=== PATIENT | female | born 1960 | race Caucasian/White ===

== ENCOUNTER → 2016-10-31 | Outpatient (CLI) | payer OTHER ==
[~2016-10-31] MED LIST: ALBINS/ INH; ALBU0.08 INH; ASMIN/30 INH; CHOL100010 PO; OXYC-106 PO; PRED20TA PO; SNG10 PO
--- NOTE | 2016-10-31 15:34 | DIAGNOSTIC IMAGING REPORT ---
RIGHT KNEE 1 OR 2 VIEWS ROUTINE CLINICAL HISTORY: KNEE PAIN Right pain COMPARISON: None. DISCUSSION: Significant degenerative change medial joint compartment. Moderate degenerative changes lateral joint compartment and patellofemoral joint. No acute bony abnormality. Bony mineralization is within normal limits. There is no evidence for soft tissue swelling. IMPRESSION: Considerable degenerative change medial joint compartment with mild degenerative change of all additional joint compartments. No acute bony abnormality. Electronically signed by: Seferino Diaz M.D. 10/31/2016 3:32 PM Dictated Date/Time: 10/31/2016 3:32 PM
--- NOTE | 2016-10-31 15:34 | DIAGNOSTIC IMAGING REPORT ---
CHEST 2 VIEWS ROUTINE CLINICAL HISTORY: ASTHMA EXACERBATION dyspnea COMPARISON STUDY: 06/28/2016 FINDINGS: The bones soft tissues and hemidiaphragms are normal. The cardiomediastinal silhouette is normal. The lungs are clear. The pulmonary vasculature is normal. IMPRESSION: Negative chest. Electronically signed by: Seferino Diaz M.D. 10/31/2016 3:33 PM Dictated Date/Time: 10/31/2016 3:33 PM
== END | disposition home or self-care (01) ==
LOC: C.RAD1850 15:06
PROVIDERS: ATTEND Student in an Organized Health Care Education/Training Program
DX: J45.901 Unspecified asthma with (acute) exacerbation (principal); M25.569 Pain in unspecified knee; M17.11 Unilateral primary osteoarthritis, right knee

== ENCOUNTER 2017-08-20 18:38 | Emergency (ER) | payer OTHER ==
[~2017-08-20] VITALS: Ht 165.1 cm; Wt 72.7 kg
[~2017-08-20 18:38] MED LIST changes: -PRED20TA PO
[2017-08-20 18:47] VITALS: TEMP 36.6; Ht 165.1 cm; Wt 72.7 kg
[2017-08-20] MEDS ORDERED: DiphenhydrAMINE HCL 50 MG/ML VIAL IV STA (19:07)
[2017-08-20] MEDS ORDERED: PROCHLORPERAZINE 5 MG/ML 2 ML VIAL IM STA (19:07)
[2017-08-20] MEDS ORDERED: KETOROLAC TROMETHAMINE 30 MG/ML VIAL IV STA (19:07)
[2017-08-20] MEDS ORDERED: DEXAMETHASONE SOD INJ 4 MG/ML VIAL IV STA (19:07)
[2017-08-20] MEDS ORDERED: ALBINS/ INH (19:14)
[2017-08-20] MEDS ORDERED: SNG10 PO (19:14)
[2017-08-20] MEDS ORDERED: ADVIN50/60 INH (19:14)
[2017-08-20] MEDS ORDERED: CHOL100027 PO (19:15)
[2017-08-20 19:22] VITALS: O2SAT 97
--- NOTE | 2017-08-20 19:25 | EMERGENCY ROOM VISIT NOTE ---
History Report prepared by Elizabeth: Daya Calixto Under the Supervision of: Dr. Raghavendra Lozada M.D. First contact with patient: 18:50 Chief Complaint: HEADACHE Stated Complaint: SEVERE HEADACHE History of Present Illness The patient is a 57 year old white female with a past medical history of Meningitis, Asthma, Hypertension, and Sinusitis who presents to the ED with a cc of a worsening headache beginning 16 hours ago. The patient reports that she was awoken out of her sleep from the headache. The patient states that the pain does not feel like when she had Meningitis. She reports that the pain is worse with lights and sound. The patient reports that she has taken Percocet with a little relief. She notes that she has had headaches in the past. Positive nausea , vomiting, back pain, and some nasal drainage. Negative urinary symptoms, melena, hematochezia, diarrhea, recent falls, and being on blood thinning medications. She notes that she last had antibiotics a few weeks ago. Source of History: patient Onset: 16 hours ago Position: head Timing: worsening Modifying Factors (Worsening): other (lights and sound) Modifying Factors (Relieving): other (Percocet) Associated Symptoms: + nausea, + vomiting, + back pain, No melena, No hematochezia, No diarrhea, No urinary symptoms Note: The patient complains of some nasal drainage. The patient denies any recent falls and being on blood thinners. Review of Systems See HPI for pertinent positives and negatives. A total of ten systems were reviewed and were otherwise negative. Past Medical & Surgical Medical Problems: (1) Asthma (2) Hx: meningitis (3) Hypertension (4) Sinusitis Family History Diabetes mellitus FHx: heart disease Hypertension Social History Smoking Status: Current Some Day Smoker Alcohol Use: occasionally Drug Use: none Marital Status: Housing Status: lives with family Occupation Status: unemployed Current/Historical Medications Scheduled Fluticasone Prop/Salmeterol (Advair Diskus 500/50 60 Dose), 1 PUFF INH BID Montelukast Sod (Montelukast Sodium), 10 MG PO DAILY Oxycodone/Acetaminophen 10MG/325MG (Percocet 10MG/325MG), 1 TAB PO QID Scheduled PRN Albuterol Sulf (Proventil 0.083% 2.5MG/3ML), 2.5 MG INH QID PRN for SOB/Wheezing Allergies Coded Allergies: BEE STING (Verified Allergy, Severe, SHORTNESS OF BREATH, 06/28/16) Penicillins (Verified Allergy, Intermediate, SWELLING, 06/28/16) Acetaminophen (Unverified Allergy, Unknown, unknown, 06/28/16) Doxepin (Unverified Allergy, Unknown, unknown, 06/28/16) Hydrocodone (Unverified Allergy, Unknown, unknown, 06/28/16) Meloxicam (Unverified Allergy, Unknown, unknown, 06/28/16) Morphine (Verified Allergy, Unknown, ???, 06/28/16) Physical Exam Vital Signs Date Time Temp Pulse Resp B/P (MAP) Pulse Ox O2 Delivery O2 Flow Rate FiO2 08/20/17 21:08 78 118/89 94 08/20/17 20:06 80 130/73 96 Room Air 08/20/17 19:27 80 08/20/17 19:22 97 Room Air 08/20/17 18:47 36.6 85 18 157/91 95 Room Air Physical Exam GENERAL: Awake, alert, well-appearing. Tearful and in pain. HENT: Normocephalic, atraumatic. Nose has turbinates look inflamed and boggy. Clear drainage. EYES: Normal conjunctiva. Sclera non-icteric. Photophobia. EMOI. Gross facially intact. NECK: Supple. No nuchal rigidity. FROM. No signs of Meningitis. RESPIRATORY: CTAB, no rhonchi, wheezing, crackles CARDIAC: RRR, no MRG ABDOMEN: Soft, NTND, BS+ MSK: No chest wall TTP, no LE edema NEURO: CN 2-12 intact, 5/5 upper and lower extremity strength, no dysmetria, no drift, good finger to nose, no sensory deficits. SKIN: No rash or jaundice noted. Medical Decision & Procedures ER Provider Diagnostic Interpretation: Radiology results as stated below per my review and radiologist interpretation: HEAD WITHOUT CONTRAST (CT) CT DOSE: 537.48 mGy.cm HISTORY: Mental status change Evaluate for hemorrhage or pathology TECHNIQUE: Multiaxial CT images of the head were performed without the use of intravenous contrast. A dose lowering technique was utilized adhering to the principles of ALARA. Comparison: 04/30/2014 Findings: Stable chronic postoperative change including antral window placement medial aspect maxillary sinuses. Mastoid air cells are clear. The calvarium and skull base are intact. The ventricles and sulci are within normal limits. There is no mass, hematoma, midline shift, or acute infarct. Impression: No acute intracranial abnormality. Chronic and postoperative changes of the maxillary sinuses. The above report was generated using voice recognition software. It may contain grammatical, syntax or spelling errors. Electronically signed by: Seferino Diaz M.D. 08/20/2017 8:05 PM Dictated Date/Time: 08/20/2017 8:03 PM Laboratory Results 08/20/17 19:30 Red Blood Count 3.90, Mean Corpuscular Volume 99.0, Mean Corpuscular Hemoglobin 32.1, Mean Corpuscular Hemoglobin Concent 32.4, Mean Platelet Volume 9.4, Neutrophils (%) (Auto) 61.2, Lymphocytes (%) (Auto) 26.9, Monocytes (%) (Auto) 9.2, Eosinophils (%) (Auto) 2.2, Basophils (%) (Auto) 0.3, Neutrophils # (Auto) 5.54, Lymphocytes # (Auto) 2.44, Monocytes # (Auto) 0.83, Eosinophils # (Auto) 0.20, Basophils # (Auto) 0.03 08/20/17 19:30 Test 08/20/17 19:30 White Blood Count 9.06 K/uL (4.8-10.8) Red Blood Count 3.90 M/uL (4.2-5.4) Hemoglobin 12.5 g/dL (12.0-16.0) Hematocrit 38.6 % (37-47) Mean Corpuscular Volume 99.0 fL (80-100) Mean Corpuscular Hemoglobin 32.1 pg (25-34) Mean Corpuscular Hemoglobin Concent 32.4 g/dl (32-36) Platelet Count 310 K/uL (130-400) Mean Platelet Volume 9.4 fL (7.4-10.4) Neutrophils (%) (Auto) 61.2 % Lymphocytes (%) (Auto) 26.9 % Monocytes (%) (Auto) 9.2 % Eosinophils (%) (Auto) 2.2 % Basophils (%) (Auto) 0.3 % Neutrophils # (Auto) 5.54 K/uL (1.4-6.5) Lymphocytes # (Auto) 2.44 K/uL (1.2-3.4) Monocytes # (Auto) 0.83 K/uL (0.11-0.59) Eosinophils # (Auto) 0.20 K/uL (0-0.5) Basophils # (Auto) 0.03 K/uL (0-0.2) RDW Standard Deviation 48.5 fL (36.4-46.3) RDW Coefficient of Variation 13.6 % (11.5-14.5) Immature Granulocyte % (Auto) 0.2 % Immature Granulocyte # (Auto) 0.02 K/uL (0.00-0.02) Anion Gap 7.0 mmol/L (3-11) Est Creatinine Clear Calc Drug Dose 100.9 ml/min Estimated GFR () 115.6 Estimated GFR (Non- 99.8 BUN/Creatinine Ratio 18.9 (10-20) Calcium Level 8.7 mg/dl (8.5-10.1) Lyme Disease IgG Antibody NEG (NEG) Lyme Disease IgM Antibody NEG (NEG) Laboratory results reviewed by me Medications Administered Medications (Trade) Dose Ordered Sig/Riley Route Start Time Stop Time Status Last Admin Dose Admin Prochlorperazine Edisylate (Compazine Inj) 10 mg NOW STAT IM 08/20/17 19:07 08/20/17 19:09 DC 08/20/17 19:45 10 MG Ketorolac Tromethamine (Toradol Inj) 30 mg NOW STAT IV 08/20/17 19:07 08/20/17 19:09 DC 08/20/17 19:38 30 MG Dexamethasone Sodium Phosphate (Decadron Inj) 10 mg NOW STAT IV 08/20/17 19:07 08/20/17 19:09 DC 08/20/17 19:40 10 MG Diphenhydramine HCl (Benadryl Inj) 50 mg NOW STAT IV 08/20/17 19:07 08/20/17 19:09 DC 08/20/17 19:39 50 MG ECG Indication: vomiting Rate (beats per minute): 72 Rhythm: normal sinus Findings: Q waves (V2), other (Normal intervals, no other STS or TWI changes) ED Course 1855: The patient was evaluated in room A9B. A complete history and physical exam was performed. 2024: I reevaluated the patient and she is doing much better. 2100: I reevaluated the patient. Discussed results and discharge instructions: She verbalized understanding and agreement. The patient is ready for discharge. Medical Decision The patient is a 57 year old white female with a past medical history of Meningitis, Asthma, Hypertension, and Sinusitis who presents to the ED with a cc of a worsening headache beginning 16 hours ago. Etiologies such as migraine headache, meningitis, sinusitis, CO exposure, ICH, SAH, infection, tumor, headache, sinus thrombosis, arterial dissection, as well as others were entertained. Patient was seen and evaluated the bedside. Patient has complained of the history of migraines but this was worse. Patient does describe some sort of history of meningitis but states it is not quite like that. Patient denies any falls fevers or chills. Patient does have a history of chronic sinusitis must metabolic proximally 3 weeks ago. Patient struck taking her Percocets but this has not helped. Exam patient is a normal neurologic exam. Patient does have some photophobia. No signs of meningismus. Patient did have blood work that was completed along with urinalysis and a CT of the brain. Patient was given a headache cocktail. Patient's CT was negative. Patient white blood cell count was within normal limits. Patient kidney function was normal. I reassessed the patient the patient was feeling improved. Patient was able tolerate by mouth. This is less likely infection. I do not believe this is ICH given the negative CT scan. Patient's feeling improved has no neurologic deficits. Patient was given return precautions and was agreeable with the plan of care. Patient was given strict follow-up, discharge, and return precautions. All questions were answered. Patient was deemed suitable for outpatient follow-up at this time. Patient agreed with the plan of care and was safely discharged home. Medication Reconcilliation Current Medication List: was personally reviewed by me Blood Pressure Screening Patient's blood pressure: Elevated blood pressure Blood pressure disposition: Elevated BP felt to be situational Impression Primary Impression: Migraine Scribe Attestation The scribe's documentation has been prepared under my direction and personally reviewed by me in its entirety. I confirm that the note above accurately reflects all work, treatment, procedures, and medical decision making performed by me. Departure Information Dispostion Home / Self-Care Referrals Vianca Andrade M.D. (PCP) Forms HOME CARE DOCUMENTATION FORM, IMPORTANT VISIT INFORMATION Patient Instructions ED Headache Migraine, My [facility] Additional Instructions Please return to the emergency department if you have worsening or recurrent symptoms not amenable to at-home treatment. Please call for a follow-up appointment with her primary care physician. Please take your medications as prescribed. If you have other concerns and/or complaints please feel free to also call your primary care physician's office or return the ED for further evaluation, management, and treatment. Consider discussing headache relief with your primary care physician. If this becomes a more chronic issue he may need to be seen by either a painter and/or a neurologist. You may take 600 mg Ibuprofen every 6 hours as needed for pain with food for no more than 2 consecutive days. You may take tylenol 1000 mg every 6 hours as needed for pain. You may take motrin and tylenol separately or at the same time. Take your medications as prescribed. You have been examined and treated today on an emergency basis only. This is not a substitute for, or an effort to provide, complete comprehensive medical care. It is impossible to recognize and treat all injuries or illnesses in a single emergency department visit. It is therefore important that you follow up closely with [facility], your PCP, and/or your specialist(s). Call as soon as possible for an appointment. Thank you for your time and consideration. I look forward to speaking with you again soon. Please don't hesitate to call us if you have any questions. Problem Qualifiers Primary Impression: Migraine Migraine type: unspecified Status migrainosus presence: without status migrainosus Intractability: not intractable Qualified Codes: G43.909 - Migraine, unspecified, not intractable, without status migrainosus
[2017-08-20 19:49] LABS: BASO % 0.3 %; BASO ABS # 0.03 K/uL (0-0.2); COMPLETE YES; EOS % 2.2 %; HEMATOCRIT 38.6 % (37-47); IG% 0.2 %; LYMPH % 26.9 %; LYMPH ABS # 2.44 K/uL (1.2-3.4); MEAN CORPUSCULAR HEMOGLOBIN 32.1 pg (25-34); MEAN CORPUSCULAR HGB CONC 32.4 g/dl (32-36); MEAN PLATELET VOLUME 9.4 fL (7.4-10.4); MONO % 9.2 %; NEUT % 61.2 %; PLATELET COUNT 310 K/uL (130-400); WHITE BLOOD COUNT 9.06 K/uL (4.8-10.8)
--- NOTE | 2017-08-20 20:06 | DIAGNOSTIC IMAGING REPORT ---
HEAD WITHOUT CONTRAST (CT) CT DOSE: 537.48 mGy.cm HISTORY: Mental status change Evaluate for hemorrhage or pathology TECHNIQUE: Multiaxial CT images of the head were performed without the use of intravenous contrast. A dose lowering technique was utilized adhering to the principles of ALARA. Comparison: 04/30/2014 Findings: Stable chronic postoperative change including antral window placement medial aspect maxillary sinuses. Mastoid air cells are clear. The calvarium and skull base are intact. The ventricles and sulci are within normal limits. There is no mass, hematoma, midline shift, or acute infarct. Impression: No acute intracranial abnormality. Chronic and postoperative changes of the maxillary sinuses. The above report was generated using voice recognition software. It may contain grammatical, syntax or spelling errors. Electronically signed by: Seferino Diaz M.D. 08/20/2017 8:05 PM Dictated Date/Time: 08/20/2017 8:03 PM
[2017-08-20 20:07] LABS: BUN/CREATININE RATIO 18.9 (10-20); CALCIUM 8.7 mg/dl (8.5-10.1); CREATININE 0.6 mg/dl (0.60-1.20); POTASSIUM 3.8 mmol/L (3.5-5.1)
[2017-08-20 20:46] LABS: LYME DISEASE AB IGG NEG (NEG); LYME DISEASE AB IGM NEG (NEG)
[2017-08-20 21:08] VITALS: BP 118/89; PULSE 78; O2SAT 94
== END 2017-08-20 21:10 | disposition home or self-care (01) ==
LOC: C.EDB 18:40 → C.EDA 21:10
DX: G43.909 Migraine, unspecified, not intractable, without status migrainosus (principal); J45.909 Unspecified asthma, uncomplicated; I10 Essential (primary) hypertension; Z72.0 Tobacco use; Z79.51 Long term (current) use of inhaled steroids; Z86.61 Personal history of infections of the central nervous system; Z83.3 Family history of diabetes mellitus; Z82.49 Family history of ischemic heart disease and other diseases of the circulatory system

== ENCOUNTER 2017-11-03 14:06 | Inpatient (IN) | payer OTHER ==
[~2017-11-03] VITALS: Ht 172.7 cm; Wt 61.6 kg
[~2017-11-03 14:06] MED LIST changes: +ADVIN50/60 INH; -ALBU0.08 INH; -ASMIN/30 INH; -CHOL100010 PO
[2017-11-03] MEDS ORDERED: SODIUM CHLORIDE 0.9% 1000ML 1,000 ML IV STA (15:27)
[2017-11-03] MEDS ORDERED: ALBUTEROL 0.083% NEBU SOLN 3 ML VIAL INH STA ×2 (15:27→18:02)
[2017-11-03] MEDS ORDERED: ASPIRIN 81 MG CHEW PO STA (15:27)
[2017-11-03 15:51] LABS: BASO % 0.1 %; BASO ABS # 0.01 K/uL (0-0.2); EOS % 0.2 %; EOS ABS # 0.03 K/uL (0-0.5); HEMATOCRIT 42.4 % (37-47); HEMOGLOBIN 14.1 g/dL (12.0-16.0); IG# 0.14 K/uL (0.00-0.02); LYMPH % 29.3 %; LYMPH ABS # 3.74 K/uL (1.2-3.4); MEAN CORPUSCULAR HEMOGLOBIN 33.6 pg (25-34); MEAN CORPUSCULAR HGB CONC 33.3 g/dl (32-36); MEAN PLATELET VOLUME 9.2 fL (7.4-10.4); MONO ABS # 1.15 K/uL (0.11-0.59); NEUT % 60.3 %; PLATELET COUNT 324 K/uL (130-400); RED CELL DISTRIBUTION WIDTH CV 14.8 % (11.5-14.5); RED CELL DISTRIBUTION WIDTH SD 54.9 fL (36.4-46.3); WHITE BLOOD COUNT 12.77 K/uL (4.8-10.8)
--- NOTE | 2017-11-03 15:53 | DIAGNOSTIC IMAGING REPORT ---
CHEST ONE VIEW PORTABLE CLINICAL HISTORY: Chest Pain dyspnea COMPARISON STUDY: 10/31/2016 FINDINGS: The bones soft tissues and hemidiaphragms are normal. The cardiomediastinal silhouette is normal. The lungs are clear. The pulmonary vasculature is normal. IMPRESSION: Negative chest. The above report was generated using voice recognition software. It may contain grammatical, syntax or spelling errors. Electronically signed by: Seferino Diaz M.D. 11/03/2017 3:52 PM Dictated Date/Time: 11/03/2017 3:51 PM
[2017-11-03 16:21] LABS: BLOOD UREA NITROGEN 21 mg/dl (7-18); CALCIUM 8.1 mg/dl (8.5-10.1); CARBON DIOXIDE 29 mmol/L (21-32); CKMB 2.8 ng/ml (0.5-3.6); CREATININE 0.77 mg/dl (0.60-1.20); GLUCOSE 135 mg/dl (70-99); POTASSIUM 4.2 mmol/L (3.5-5.1); SODIUM 135 mmol/L (136-145)
[2017-11-03 17:08] LABS: INFLUENZA B ANTIGEN Neg for Influ B (NEG)
[2017-11-03] MEDS ORDERED: HYDROmorphone INJ 0.5 MG/0.5 ML SYR IV STA (17:25)
[2017-11-03] MEDS ORDERED: NITROGLYCERIN 0.4 MG SL PER TAB CHARGE SL PRN (17:30)
[2017-11-03] MEDS ORDERED: ACETAMINOPHEN 500 MG TAB PO STA (18:02)
[2017-11-03] MEDS ORDERED: GI COCKTAIL PO STA (18:15)
[2017-11-03] MEDS ORDERED: LIDOCAINE HCL 2% VISC SOLN 20 ML UDC ONE (18:20)
[2017-11-03] MEDS ORDERED: ALUMINUM/MAGNESIUM SUSP 30 ML UDC ONE (18:20)
[2017-11-03] MEDS ORDERED: METHYLPREDNISOLONE 125 MG VIAL IV STA (19:13)
--- NOTE | 2017-11-03 19:24 | EMERGENCY ROOM VISIT NOTE ---
History Report prepared by Elizabeth: Vivek Buckley Under the Supervision of: Dr. Loi Martinez D.O. First contact with patient: 15:18 Chief Complaint: ILLNESS Stated Complaint: NOT FEELING WELL (SICK) History of Present Illness The patient is a 57 year old female who presents to the Emergency Room with complaints of generalized weakness that began four days ago. She has a past medical history of hypertension, asthma, and a previous ID. The patient states that she began to feel ill about 2 weeks ago, but ended up improving. However, four days ago the patient suddenly began to feel generally weak. She also began to have a worsened nonproductive cough, body aches, shortness of breath that is worse with exertion, and left sided chest pain when she lies down. Pt denies headache, change in vision, rhinorrhea, sore throat, fevers, nausea, vomiting, abdominal pain, diarrhea, pain with urination, melena, and leg swelling. Source of History: patient Onset: four days ago Position: other (Global) Symptom Intensity: moderate Quality: other (Generalized weakness) Timing: constant Associated Symptoms: + chest pain (left sided with lying down), + SOB (with exertion), No fevers, No headache, No sorethroat, No nausea, No vomiting, No abdominal pain, No melena, No diarrhea, No urinary symptoms Review of Systems See HPI for pertinent positives & negatives. A total of 10 systems reviewed and were otherwise negative. Past Medical & Surgical Medical Problems: (1) Acute sinusitis (2) Asthma (3) COPD exacerbation (4) Hx: meningitis (5) Hypertension (6) Sinusitis Family History Diabetes mellitus FHx: heart disease Hypertension Social History Smoking Status: Current Every Day Smoker Alcohol Use: occasionally Drug Use: none Marital Status: Housing Status: lives with family Occupation Status: unemployed Current/Historical Medications Scheduled Fluticasone Prop/Salmeterol (Advair Diskus 500/50 60 Dose), 1 PUFF INH BID Montelukast Sod (Montelukast Sodium), 10 MG PO DAILY Oxycodone/Acetaminophen 10MG/325MG (Percocet 10MG/325MG), 1 TAB PO QID Scheduled PRN Albuterol Sulf (Proventil 0.083% 2.5MG/3ML), 2.5 MG INH QID PRN for SOB/Wheezing Allergies Coded Allergies: BEE STING (Verified Allergy, Severe, SHORTNESS OF BREATH, 06/28/16) Penicillins (Verified Allergy, Intermediate, SWELLING, 06/28/16) Acetaminophen (Unverified Allergy, Unknown, unknown, 06/28/16) Doxepin (Unverified Allergy, Unknown, unknown, 06/28/16) Hydrocodone (Unverified Allergy, Unknown, unknown, 06/28/16) Meloxicam (Unverified Allergy, Unknown, unknown, 06/28/16) Morphine (Verified Allergy, Unknown, ???, 06/28/16) Physical Exam Vital Signs Date Time Temp Pulse Resp B/P (MAP) Pulse Ox O2 Delivery O2 Flow Rate FiO2 11/03/17 19:13 80 20 127/78 98 Room Air 11/03/17 18:04 95 20 99/66 97 Room Air 11/03/17 17:00 87 20 128/88 97 Room Air 11/03/17 16:31 88 20 109/66 100 Nebulizer 5.0 11/03/17 14:34 36.8 93 16 115/64 96 Room Air Physical Exam GENERAL: Sitting up in bed, disheveled, alert, chronically ill appearing, well nourished, no distress, non-toxic EYE EXAM: normal conjunctiva. OROPHARYNX: no exudate, no erythema, lips, buccal mucosa, and tongue normal and mucous membranes are moist NECK: supple, no nuchal rigidity, no adenopathy, non-tender CHEST: No reproducible chest pain LUNGS: Clear to auscultation. Normal chest wall mechanics HEART: no murmurs, S1 normal and S2 normal ABDOMEN: abdomen soft, non-tender, normo-active bowel sounds, no masses, no rebound or guarding. BACK: Back is symmetrical on inspection and there is no deformity, no midline tenderness, no CVA tenderness. SKIN: no rashes and no bruising UPPER EXTREMITIES: upper extremities are grossly normal. Radial pulses equal bilaterally. LOWER EXTREMITIES: No pitting edema. DP's are 2/4 bilaterally. Calves equal bilaterally. NEURO EXAM: Normal sensorium, cranial nerves II-XII grossly intact, normal speech, no gross weakness of arms, no gross weakness of legs. Medical Decision & Procedures ER Provider Diagnostic Interpretation: Radiology results as stated below per my review and the radiologist's interpretation: CHEST ONE VIEW PORTABLE CLINICAL HISTORY: Chest Pain dyspnea COMPARISON STUDY: 10/31/2016 FINDINGS: The bones soft tissues and hemidiaphragms are normal. The cardiomediastinal silhouette is normal. The lungs are clear. The pulmonary vasculature is normal. IMPRESSION: Negative chest. The above report was generated using voice recognition software. It may contain grammatical, syntax or spelling errors. Electronically signed by: Seferino Diaz M.D. 11/03/2017 3:52 PM Dictated Date/Time: 11/03/2017 3:51 PM Laboratory Results 11/03/17 15:35 Red Blood Count 4.20, Mean Corpuscular Volume 101.0, Mean Corpuscular Hemoglobin 33.6, Mean Corpuscular Hemoglobin Concent 33.3, Mean Platelet Volume 9.2, Neutrophils (%) (Auto) 60.3, Lymphocytes (%) (Auto) 29.3, Monocytes (%) ( Auto) 9.0, Eosinophils (%) (Auto) 0.2, Basophils (%) (Auto) 0.1, Neutrophils # ( Auto) 7.70, Lymphocytes # (Auto) 3.74, Monocytes # (Auto) 1.15, Eosinophils # ( Auto) 0.03, Basophils # (Auto) 0.01 11/03/17 15:35 Test 11/03/17 15:35 11/03/17 16:37 White Blood Count 12.77 K/uL (4.8-10.8) Red Blood Count 4.20 M/uL (4.2-5.4) Hemoglobin 14.1 g/dL (12.0-16.0) Hematocrit 42.4 % (37-47) Mean Corpuscular Volume 101.0 fL (80-100) Mean Corpuscular Hemoglobin 33.6 pg (25-34) Mean Corpuscular Hemoglobin Concent 33.3 g/dl (32-36) Platelet Count 324 K/uL (130-400) Mean Platelet Volume 9.2 fL (7.4-10.4) Neutrophils (%) (Auto) 60.3 % Lymphocytes (%) (Auto) 29.3 % Monocytes (%) (Auto) 9.0 % Eosinophils (%) (Auto) 0.2 % Basophils (%) (Auto) 0.1 % Neutrophils # (Auto) 7.70 K/uL (1.4-6.5) Lymphocytes # (Auto) 3.74 K/uL (1.2-3.4) Monocytes # (Auto) 1.15 K/uL (0.11-0.59) Eosinophils # (Auto) 0.03 K/uL (0-0.5) Basophils # (Auto) 0.01 K/uL (0-0.2) RDW Standard Deviation 54.9 fL (36.4-46.3) RDW Coefficient of Variation 14.8 % (11.5-14.5) Immature Granulocyte % (Auto) 1.1 % Immature Granulocyte # (Auto) 0.14 K/uL (0.00-0.02) Anion Gap 6.0 mmol/L (3-11) Est Creatinine Clear Calc Drug Dose 76.5 ml/min Estimated GFR () 98.0 Estimated GFR (Non- 84.5 BUN/Creatinine Ratio 27.8 (10-20) Calcium Level 8.1 mg/dl (8.5-10.1) Total Creatine Kinase 96 U/L (26-192) Creatine Kinase MB 2.8 ng/ml (0.5-3.6) Creatine Kinase MB Ratio 2.9 (0-3.0) Troponin I < 0.015 ng/ml (0-0.045) Chemistry Specimen Hemolysis Influenza Type A Antigen Neg for Influ A (NEG) Influenza Type B Antigen Neg for Influ B (NEG) Laboratory results per my review. Medications Administered Medications (Trade) Dose Ordered Sig/Riley Route Start Time Stop Time Status Last Admin Dose Admin Sodium Chloride 1,000 ml @ 999 mls/hr Q1H1M STAT IV 11/03/17 15:27 11/03/17 16:27 DC 11/03/17 16:28 999 MLS/HR Aspirin (Aspirin Chew) 324 mg NOW STAT PO 11/03/17 15:27 11/03/17 15:28 DC 11/03/17 16:25 324 MG Albuterol Sulfate (Ventolin 0.083% 2.5MG/3ML Neb) 2.5 mg NOW STAT INH 11/03/17 15:27 11/03/17 15:28 DC 11/03/17 16:26 2.5 MG Nitroglycerin (Nitrostat Tab) 0.4 mg Q5M PRN SL 11/03/17 17:30 12/03/17 17:29 11/03/17 17:42 0.4 MG Hydromorphone HCl (Dilaudid Inj) 0.5 mg NOW STAT IV 11/03/17 17:25 11/03/17 17:27 DC 11/03/17 19:15 0.5 MG Albuterol Sulfate (Ventolin 0.083% 2.5MG/3ML Neb) 2.5 mg NOW STAT INH 11/03/17 18:02 11/03/17 18:03 DC 11/03/17 18:23 2.5 MG Acetaminophen (Tylenol Tab) 500 mg NOW STAT PO 11/03/17 18:02 11/03/17 18:03 DC 11/03/17 18:22 500 MG Miscellaneous Medication (Gi Cocktail) 24 ml NOW STAT PO 11/03/17 18:15 11/03/17 18:16 DC 11/03/17 18:15 24 ML Al Hydroxide/Mg Hydroxide (Maalox Susp) 30 ml STK-MED ONCE .ROUTE 11/03/17 18:20 11/03/17 18:21 DC 11/03/17 18:23 30 ML ECG Indication: chest pain, SOB/dyspnea Rate (beats per minute): 82 Rhythm: sinus rhythm Findings: PAC, Q waves (septal), other (Normal axis) Comparison ECG Date: 19 Aug 2017 Change: no significant change Change: Patient's electrocardiogram interpreted by me. ED Course ED COURSE: Vital signs were reviewed and showed normal vitals. The patients medical record was reviewed The above diagnostic studies were performed and reviewed. ED treatments and interventions as stated above. 1518: The patient was evaluated in room B6. A complete history and physical examination was performed. 1527: Ordered Albuterol Sulfate 2.5 mg INH, Aspirin 324 mg PO, Sodium Chloride 1000 ml @ 999 mls/hr IV 1725: Ordered Dilaudid Inj 0.5 mg IV 1730: Ordered Nitroglycerin 0.4 mg SL 1740: Upon reevaluation, the patient is resting.I discussed my findings with the patient and she understands and agrees with the treatment plan. Based on the patients age, coexisting illnesses, exam and lab findings the decision to treat as an inpatient was made. The patient remained stable while under my care. The patient will be evaluated by Dr. Alvarenga - [facility] [place], for further management. 1802: Upon reevaluation, the patient's chest pain has gone away. Ordered Albuterol Sulfate 2.5 mg INH Medical Decision Differential diagnoses includes but is not limited to acute coronary syndrome, myocardial infarction, pericarditis, pulmonary embolus, aortic dissection, pneumonia, pneumothorax, musculoskeletal, shingles, esophageal. Patient is a 57-year-old female who presents to ER for 4 days worth of feeling weak associated with a cough which is worse. Just complains of chest pain, left arm pain and shortness of breath. Does have a previous ID back in 1998. She is also a smoker. CBC shows a mild leukocytosis. BMP along with troponin was negative. Influenza was negative. Chest x-ray unremarkable. She was given neb treatments, and her chest pain resolved with nitroglycerin. Following that she did get a worsening of her headache. She was given Tylenol and Dilaudid. She was given fluids. Do favor she likely has a viral URI but with her history is concerned as she had chest pain associated with left arm pain, shortness of breath and a previous ID. Discussed case with internal medicine for further workup. Medication Reconcilliation Current Medication List: was personally reviewed by me Blood Pressure Screening Patient's blood pressure: Normal blood pressure Blood pressure disposition: Did not require urgent referral Consults Time Called: 1735 Consulting Physician: Dr. Lyle MURPHY Returned Call: 1740 I reviewed the patient's case with her. She will evaluate the patient for further management. Impression Primary Impression: Precordial chest pain Scribe Attestation The scribe's documentation has been prepared under my direction and personally reviewed by me in its entirety. I confirm that the note above accurately reflects all work, treatment, procedures, and medical decision making performed by me. Departure Information Dispostion Being Evaluated By Hospitalist Referrals Vianca Andrade M.D. (PCP) Patient Instructions My [facility]
[2017-11-03] MEDS ORDERED: ALBUT/IPRATROP 3MG/0.5MG NEB 3 ML VIAL INH SCH (20:00)
--- NOTE | 2017-11-03 20:02 | DIAGNOSTIC IMAGING REPORT ---
SINUSES-MAXILLOFACIAL W/O CT DOSE: 492.07 mGy.cm HISTORY: Pain. Sinusitis. h/o multiple sinus surgeries/meningitis, suspect acute sinusitis TECHNIQUE: Multiaxial CT images of the paranasal sinuses were performed and reformatted in the coronal plane without the use of contrast. A dose lowering technique was utilized adhering to the principles of ALARA. COMPARISON: 10/04/2013 FINDINGS: Findings of considerable nasal operative change. Bilateral maxillary antral windows have been placed. These are patent. There are findings of near complete ethmoidectomies. There is partial nasal turbinate resection primarily of the mid and upper nasal turbinates. Moderate mucosal thickening of the sphenoid sinuses. Mild mucosal thickening of the residual ethmoids. No bony destructive process. The mastoid air cells are clear. The orbits are unremarkable. IMPRESSION: 1. Mild/moderate generalized mucosal thickening of all major residual sinuses. 2. Bilateral antral windows have been placed which are patent. 3. Near complete ethmoidectomies with mild mucosal thickening of the residual ethmoids anteriorly. 4. Operative changes consistent with resection of the bulk of the nasal turbinates. 5. The current study is remarkable for improved mucosal thickening compared to the prior exam The above report was generated using voice recognition software. It may contain grammatical, syntax or spelling errors. Electronically signed by: Seferino Diaz M.D. 11/03/2017 8:00 PM Dictated Date/Time: 11/03/2017 7:56 PM
[2017-11-03 20:51] VITALS: BP 145/77; PULSE 74; TEMP 36.7; Ht 172.7 cm; Wt 61.6 kg
[2017-11-03] MEDS ORDERED: NYSTATIN SUSP 500,000 U/5 ML UDC PO SCH (21:00)
[2017-11-03] MEDS ORDERED: OXYCODONE/ACETAMINOPHEN 10/325MG TAB PO SCH (21:00)
[2017-11-03] MEDS ORDERED: FLUTICASONE/SALMETEROL (ADVAIR) 500/50 INH 14 PUFF INH SCH (21:00)
[2017-11-03] MEDS ORDERED: PANTOprazole SOD 40 MG TAB PO ONE (21:15)
[2017-11-03] MEDS ORDERED: METHYLPREDNISOLONE 125 MG in SYRINGE 0 ML IV ONE (21:15)
[2017-11-03] MEDS ORDERED: FLUCONAZOLE 100 MG TAB PO ONE (21:15)
[2017-11-03] MEDS ORDERED: LEVOFLOXACIN / D5W 500 MG in PREMIXED IN D5W 100 ML IV SCH (21:30)
[2017-11-03 21:32] LABS: INR 0.9 (0.9-1.1); PTT PATIENT 23.4 SECONDS (21.0-31.0)
[2017-11-03] MEDS ORDERED: ENOXAPARIN 40 MG/0.4 ML SYR SC SCH (22:00)
[2017-11-03 23:14] VITALS: BP 121/67; PULSE 95; TEMP 36.7; O2SAT 97
[2017-11-03 23:30] VITALS: O2SAT 97
--- NOTE | 2017-11-03 23:38 | History and Physical ---
History & Physical Date & Time of Service: Nov 03, 2017 at 23:38 Chief Complaint: Acute Sinusitis; Copd Exacerbation Primary Care Physician: Vianca Andrade M.D. History of Present Illness Source: patient, hospital records This patient is a 57-year-old female with a history of chronic sinusitis and multiple sinus surgeries, osteoarthritis, asthma/COPD, current smoker, PUD, and what sounds like some demand ischemia in the perioperative period in 1998, who presents to the ER with progressively worsening shortness of breath and cough. She also complains of severe facial pain with frontal headache and swollen eyes. She denies fevers/sweats/chills. She also complains of burning chest pain that sometimes radiates down the left arm. We were consulted to rule her out for acute coronary syndrome, but this clinically seems unlikely. Her ECG did not show any acute ischemic changes, her troponin was negative, and her chest x-ray was negative. Flu swab was negative. Nitroglycerin did not help her chest pain, however a GI cocktail did significantly improve it. She does have significant signs and symptoms of acute sinusitis. She has a lot of postnasal drainage and when she coughs this up, it is thick and green. She reports she took 2 prednisone pills when this first started 4 days ago, and this made all of her symptoms much better for about 2 days. She then worsened again 2 days ago. She is not hypoxic, but is wheezing significantly and in mild respiratory distress on exam. She had a leukocytosis and tachycardia. She will be admitted with sepsis with acute sinusitis and to rule out for ACS. Past Medical/Surgical History PMH: Asthma/COPD Current smoker Extensive history of sinusitis with multiple sinus surgeries Osteoarthritis Opioid dependence Demand ischemia in the setting of the perioperative period in 1998-cardiac cath was normal at that time as per patient PUD PSH: 4 nasal and sinus surgeries with turbinate reductions Bilateral carpal tunnel release Ovarian cyst removal Family History Diabetes mellitus FHx: heart disease Hypertension Father-unknown Mother- of lymphoma Brother-with osteoarthritis Much of family history is largely unknown Social History Smoking Status: Current Every Day Smoker (Has smoked for most of her life and is trying to cut back) Alcohol Use: none Drug Use: none Marital Status: Housing status: lives with family Occupational Status: unemployed (Previously was a regional dedicated truck driver, 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) Immunizations History of Influenza Vaccine: N/A History of Tetanus Vaccine?: Yes History of Pneumococcal: Yes History of Hepatitis B Vaccine: No Allergies Coded Allergies: BEE STING (Verified Allergy, Severe, SHORTNESS OF BREATH, 06/28/16) Penicillins (Verified Allergy, Intermediate, SWELLING, 06/28/16) Acetaminophen (Unverified Allergy, Unknown, unknown, 06/28/16) Doxepin (Unverified Allergy, Unknown, unknown, 06/28/16) Hydrocodone (Unverified Allergy, Unknown, unknown, 06/28/16) Meloxicam (Unverified Allergy, Unknown, unknown, 06/28/16) Morphine (Verified Allergy, Unknown, ???, 06/28/16) Home Medications Scheduled Fluticasone Prop/Salmeterol (Advair Diskus 500/50 60 Dose), 1 PUFF INH BID Montelukast Sod (Montelukast Sodium), 10 MG PO DAILY Oxycodone/Acetaminophen 10MG/325MG (Percocet 10MG/325MG), 1 TAB PO QID Scheduled PRN Albuterol Sulf (Proventil 0.083% 2.5MG/3ML), 2.5 MG INH QID PRN for SOB/Wheezing Review of Systems Constitutional: No fever, No chills, No sweats Eyes: + problem reported (Notes periorbital edema new in the last few days) ENT: + problem reported (Severe frontal headache) Respiratory: + cough, + sputum (Is coughing up thick green mucus that is draining from her nose), + wheezing Cardiovascular: + chest pain Abdomen: No pain, No nausea, No vomiting, No diarrhea, No constipation Musculoskeletal: + joint pain (Chronic in her bilateral knees and right elbow with swelling) Genitourinary - Female: No problem reported Neurologic: No problem reported Psychiatric: + anxiety (Recently lost a close friend and she found her at home) Endocrine: No problem reported Hematologic / Lymphatic: No problem reported Integumentary: No problem reported Allergic / Immunologic: + problem reported (Has multiple sensitivities to medications especially antibiotics with a lot of GI upset) Physical Exam Vital Signs Date Time Temp Pulse Resp B/P (MAP) Pulse Ox O2 Delivery O2 Flow Rate FiO2 11/03/17 20:51 36.7 74 20 145/77 Room Air 11/03/17 20:17 67 16 122/78 98 11/03/17 19:13 80 20 127/78 98 Room Air 11/03/17 18:04 95 20 99/66 97 Room Air 11/03/17 17:00 87 20 128/88 97 Room Air 11/03/17 16:31 88 20 109/66 100 Nebulizer 5.0 11/03/17 14:34 36.8 93 16 115/64 96 Room Air General Appearance: + mild distress (Working to breathe at times, tachypneic with fluid sentences, appears disheveled and anxious) Head: normocephalic, atraumatic Eyes: PERRL, EOMI, + pertinent finding (Bilateral periorbital edema with mild erythema over the maxillary regions bilaterally) ENT: hearing grossly normal, TMs normal, + pharyngeal erythema (With large white plaques all over buccal mucosa and the posterior oropharynx) Neck: supple, no adenopathy, thyroid normal, trachea midline Respiratory/Chest: + respiratory distress (Mild with tachypnea), + rhonchi ( Diffusely), + wheezing (Diffusely inspiratory and expiratory) Cardiovascular: regular rate, rhythm, no edema, no gallop, no murmur, normal peripheral pulses Abdomen/GI: normal bowel sounds, non tender, soft, no organomegaly Back: normal inspection Extremities/Musculoskelatal: normal inspection, no calf tenderness, normal capillary refill, no pedal edema, + swelling (Bilateral knee effusions, right elbow effusion) Neurologic/Psych: alert, oriented x 3, + pertinent finding (Anxious) Skin: warm/dry, no rash Lymphatic: no adenopathy Diagnostics Laboratory Results Results Past 24 Hours Test 11/03/17 15:35 11/03/17 16:37 Range/Units White Blood Count 12.77 4.8-10.8 K/uL Red Blood Count 4.20 4.2-5.4 M/uL Hemoglobin 14.1 12.0-16.0 g/dL Hematocrit 42.4 37-47 % Mean Corpuscular Volume 101.0 80-100 fL Mean Corpuscular Hemoglobin 33.6 25-34 pg Mean Corpuscular Hemoglobin Concent 33.3 32-36 g/dl Platelet Count 324 130-400 K/uL Mean Platelet Volume 9.2 7.4-10.4 fL Neutrophils (%) (Auto) 60.3 % Lymphocytes (%) (Auto) 29.3 % Monocytes (%) (Auto) 9.0 % Eosinophils (%) (Auto) 0.2 % Basophils (%) (Auto) 0.1 % Neutrophils # (Auto) 7.70 1.4-6.5 K/uL Lymphocytes # (Auto) 3.74 1.2-3.4 K/uL Monocytes # (Auto) 1.15 0.11-0.59 K/uL Eosinophils # (Auto) 0.03 0-0.5 K/uL Basophils # (Auto) 0.01 0-0.2 K/uL RDW Standard Deviation 54.9 36.4-46.3 fL RDW Coefficient of Variation 14.8 11.5-14.5 % Immature Granulocyte % (Auto) 1.1 % Immature Granulocyte # (Auto) 0.14 0.00-0.02 K/uL Prothrombin Time 9.0 9.0-12.0 SECONDS Prothromb Time International Ratio 0.9 0.9-1.1 Activated Partial Thromboplast Time 23.4 21.0-31.0 SECONDS Partial Thromboplastin Ratio 0.9 Sodium Level 135 136-145 mmol/L Potassium Level 4.2 3.5-5.1 mmol/L Chloride Level 100 98-107 mmol/L Carbon Dioxide Level 29 21-32 mmol/L Anion Gap 6.0 3-11 mmol/L Blood Urea Nitrogen 21 7-18 mg/dl Creatinine 0.77 0.60-1.20 mg/dl Est Creatinine Clear Calc Drug Dose 76.5 ml/min Estimated GFR () 98.0 Estimated GFR (Non- 84.5 BUN/Creatinine Ratio 27.8 10-20 Random Glucose 135 70-99 mg/dl Calcium Level 8.1 8.5-10.1 mg/dl Total Creatine Kinase 96 26-192 U/L Creatine Kinase MB 2.8 0.5-3.6 ng/ml Creatine Kinase MB Ratio 2.9 0-3.0 Troponin I < 0.015 0-0.045 ng/ml Chemistry Specimen Hemolysis Influenza Type A Antigen Neg for Influ A NEG Influenza Type B Antigen Neg for Influ B NEG CXR normal EKG Normal sinus rhythm, no ischemic changes Impression Assessment and Plan This patient is a 57-year-old female with a history of chronic sinusitis and multiple sinus surgeries, osteoarthritis, asthma/COPD, current smoker, PUD, and what sounds like some demand ischemia in the perioperative period in 1998, who presents to the ER with progressively worsening shortness of breath and cough. She also complains of severe facial pain with frontal headache and swollen eyes. She denies fevers/sweats/chills. She also complains of burning chest pain that sometimes radiates down the left arm. We were consulted to rule her out for acute coronary syndrome, but this clinically seems unlikely. Her ECG did not show any acute ischemic changes, her troponin was negative, and her chest x-ray was negative. Flu swab was negative. Nitroglycerin did not help her chest pain, however a GI cocktail did significantly improve it. She does have significant signs and symptoms of acute sinusitis. She has a lot of postnasal drainage and when she coughs this up, it is thick and green. She reports she took 2 prednisone pills when this first started 4 days ago, and this made all of her symptoms much better for about 2 days. She then worsened again 2 days ago. She is not hypoxic, but is wheezing significantly and in mild respiratory distress on exam. She had a leukocytosis and tachycardia. She will be admitted with sepsis with acute sinusitis and acute exacerbation of COPD, as well as to rule out for ACS. Sepsis/acute sinusitis/headache-has significant history of surgery on the sinuses and turbinates, presenting with signs and symptoms of acute sinusitis. Flu swab negative -Check CT of the sinuses -Start IV Levaquin and monitor for side effects as she often has adverse side effects with antibiotics -Start probiotic -Percocet as needed for pain -Received 1 L bolus in the ER, is tolerating p.o. -Follow CBC Atypical chest pain with radiation to the left upper extremity/oral candidiasis- seems to be GI related. She does have fairly severe oral candidiasis. It is possible that she has esophageal candidiasis as well causing her pain. This could be from not rinsing after using Advair. It was relieved with a GI cocktail and not with nitroglycerin. She does have significant risk factors for CAD such as smoking, previous history of demand ischemia. -Start nystatin swish and swallow 2 week course -Begin Diflucan 100 mg p.o. daily and complete a two-week course empirically -Trend troponin and ECGs, monitor on telemetry -Check echo -Check lipid panel in the morning -Aspirin 81 mg daily, however should stop if rules out for ACS given history of PUD -Start Protonix 40 mg once daily Acute exacerbation of COPD/acute respiratory failure/current smoker-chest x-ray without evidence of pneumonia or CHF -Start IV Solu-Medrol and taper down -We will give duo nebs scheduled every 4 hours -Continue Advair and needs counseling on rinsing of mouth afterwards -Receiving Levaquin as above for sinusitis as well as for acute bronchitis -Counseled on importance of smoking cessation Osteoarthritis/opioid dependence-stable -Continue Percocet scheduled from home Macrocytosis without anemia-denies alcohol use -Check B12 and folate in the morning Prophylaxis-Lovenox SQ Disposition-to home when medically improved Full code Level of Care Telemetry Advanced Directives Existing Living Will: No Existing Power of Lithographic Photographer: No Resuscitation Status FULL RESUSCITATION VTE Prophylaxis VTE Risk Assessment Done? Y/N: Yes Risk Level: Moderate Given or contraindicated: Enoxaparin (Lovenox)SQ Additional Copies To Vianca Andrade M.D.
[2017-11-04] MEDS ORDERED: NURSING VERBAL MED ORDER ONE ×2 (00:45)
[2017-11-04] MEDS ORDERED: ONDANSETRON INJ 2 MG/ML 2 ML VIAL IV PRN (01:00)
[2017-11-04] MEDS ORDERED: ACETAMINOPHEN 500 MG TAB PO PRN (01:00)
[2017-11-04] MEDS ORDERED: SODIUM CHLORIDE 0.65% NA SOLN 45 ML (OCEAN) PRN (01:45)
[2017-11-04] MEDS ORDERED: METHYLPREDNISOLONE IV 60 MG in SYRINGE 0 ML IV SCH (03:00)
[2017-11-04] MEDS ORDERED: ASPIRIN 81 MG ECTAB PO SCH (09:00)
[2017-11-04] MEDS ORDERED: PANTOprazole SOD 40 MG TAB PO SCH (09:00)
[2017-11-04] MEDS ORDERED: MONTELUKAST SOD 10 MG TAB PO SCH (09:00)
[2017-11-04] MEDS ORDERED: FLUTICASONE PROPIONATE NA SPR 16 GM BTL SCH (09:00)
[2017-11-04] MEDS ORDERED: FLUCONAZOLE 100 MG TAB PO SCH (09:00)
[2017-11-04] MEDS ORDERED: SACCHAROMYCES BOUL (FLORASTOR) 250 MG CAP PO SCH (09:00)
== END 2017-11-04 02:55 | disposition left against medical advice (07) | DRG 871 ==
LOC: C.EDB 14:07 → C.MED 19:12 → ENRESERV 19:35
PROVIDERS: ADMIT Family Medicine; ATTEND Family Medicine
DX: A41.9 Sepsis, unspecified organism (principal); J96.00 Acute respiratory failure, unspecified whether with hypoxia or hypercapnia; J44.1 Chronic obstructive pulmonary disease with (acute) exacerbation; J44.0 Chronic obstructive pulmonary disease with (acute) lower respiratory infection; B37.0 Candidal stomatitis; F11.20 Opioid dependence, uncomplicated; J20.9 Acute bronchitis, unspecified; J01.90 Acute sinusitis, unspecified; R07.89 Other chest pain; J32.9 Chronic sinusitis, unspecified; R51 Headache; D75.89 Other specified diseases of blood and blood-forming organs; F17.200 Nicotine dependence, unspecified, uncomplicated; M19.90 Unspecified osteoarthritis, unspecified site; Z86.79 Personal history of other diseases of the circulatory system; Z87.11 Personal history of peptic ulcer disease; Z98.890 Other specified postprocedural states; Z79.899 Other long term (current) drug therapy; Z88.0 Allergy status to penicillin; Z88.1 Allergy status to other antibiotic agents; Z88.5 Allergy status to narcotic agent; Z88.6 Allergy status to analgesic agent; Z88.8 Allergy status to other drugs, medicaments and biological substances; Z91.030 Bee allergy status; Z82.49 Family history of ischemic heart disease and other diseases of the circulatory system; Z83.3 Family history of diabetes mellitus; Z82.61 Family history of arthritis; Z80.7 Family history of other malignant neoplasms of lymphoid, hematopoietic and related tissues

== ENCOUNTER → 2017-12-30 | Outpatient (CLI) | payer OTHER ==
[~2017-12-30] MED LIST changes: +CHOL100010; +PANT40TA PO; +SPRIN/30 INH; +[UNRECOGNIZED DRUG - CODE]
[2017-12-30 16:48] LABS: BASO % 0.7 %; BASO ABS # 0.05 K/uL (0-0.2); EOS % 4.7 %; EOS ABS # 0.33 K/uL (0-0.5); HEMATOCRIT 37.5 % (37-47); HEMOGLOBIN 12.6 g/dL (12.0-16.0); IG# 0.01 K/uL (0.00-0.02); LYMPH % 35.4 %; LYMPH ABS # 2.51 K/uL (1.2-3.4); MEAN CELL VOLUME 98.4 fL (80-100); MEAN CORPUSCULAR HEMOGLOBIN 33.1 pg (25-34); MEAN CORPUSCULAR HGB CONC 33.6 g/dl (32-36); MEAN PLATELET VOLUME 9.8 fL (7.4-10.4); MONO % 8.7 %; MONO ABS # 0.62 K/uL (0.11-0.59); NEUT % 50.4 %; NEUT ABS # 3.57 K/uL (1.4-6.5); PLATELET COUNT 388 K/uL (130-400); RED CELL DISTRIBUTION WIDTH CV 13.2 % (11.5-14.5); RED CELL DISTRIBUTION WIDTH SD 47.4 fL (36.4-46.3); WHITE BLOOD COUNT 7.09 K/uL (4.8-10.8)
[2017-12-30 16:59] LABS: INR 0.9 (0.9-1.1); PTT PATIENT 29.6 SECONDS (21.0-31.0)
[2017-12-30 17:29] LABS: ALBUMIN 3.7 gm/dl (3.4-5.0); ALT/SGPT 21 U/L (12-78); BLOOD UREA NITROGEN 12 mg/dl (7-18); CALCIUM 8.9 mg/dl (8.5-10.1); CARBON DIOXIDE 24 mmol/L (21-32); CREATININE 0.75 mg/dl (0.60-1.20); GLUCOSE 96 mg/dl (70-99); POTASSIUM 4.1 mmol/L (3.5-5.1); SODIUM 135 mmol/L (136-145)
[2017-12-30 17:31] LABS: ALKALINE PHOSPHATASE 68 U/L (45-117); AST/SGOT 15 U/L (15-37); TOTAL PROTEIN 6.7 gm/dl (6.4-8.2)
== END | disposition home or self-care (01) ==
LOC: C.LABPBG 14:58
PROVIDERS: ATTEND Physician Assistant
DX: I20.0 Unstable angina (principal); R06.02 Shortness of breath; R00.0 Tachycardia, unspecified

== ENCOUNTER → 2017-12-31 | Day surgery (SDC) | payer OTHER ==
[~2017-12-31] VITALS: Ht 162.6 cm; Wt 70.0 kg
[~2017-12-31] MED LIST changes: +FENTANYL CITRATE INJ 50 MCG/1 ML 2 ML VIAL ONE; +HEPARIN SOD (PORCINE) 1000 UNIT/ML 10 ML VIAL ONE; +LIDOCAINE HCL 1% 20 ML VIAL ONE; +MIDAZOLAM HCL 1 MG/ML 2ML VIAL ONE; +NITROGLYCERIN/D5W 100MCG/ML 20ML SYR ONE; +NiCARDipine HCL INJ 2.5 MG/ML 10 ML AMP ONE
[2017-12-31 07:07] VITALS: BP 114/66; PULSE 88; TEMP 36.8; O2SAT 98; Ht 162.6 cm; Wt 70.0 kg
--- NOTE | 2017-12-31 08:02 | History and Physical ---
History & Physical Date Dec 31, 2017. History of Present Illness 57 year old woman with history of GERD, asthma/copd, chronic pain, tobacco abuse , hypertension not on therapy here with months of exertional chest pain. Pain described as tightness occasionally radiating to back and associated with shortness of breath. Symptoms particularly noteable during times of anxiety. Reportedly had a stress test and heart cath at [place] in 2006 - did not require stents per patient. Past Medical/Surgical History Medical Problems: (1) Acute sinusitis (2) Asthma (3) COPD exacerbation (4) Hx: meningitis (5) Hypertension (6) Sinusitis Allergies Coded Allergies: BEE STING (Verified Allergy, Severe, SHORTNESS OF BREATH, 06/28/16) Penicillins (Verified Allergy, Intermediate, SWELLING, 06/28/16) Acetaminophen (Unverified Allergy, Unknown, unknown, 06/28/16) Doxepin (Unverified Allergy, Unknown, unknown, 06/28/16) Hydrocodone (Unverified Allergy, Unknown, unknown, 06/28/16) Meloxicam (Unverified Allergy, Unknown, unknown, 06/28/16) Morphine (Verified Allergy, Unknown, ???, 06/28/16) Home Medications Scheduled Fluticasone Prop/Salmeterol (Advair Diskus 500/50 60 Dose), 1 PUFF INH BID Montelukast Sod (Montelukast Sodium), 10 MG PO DAILY Oxycodone/Acetaminophen 10MG/325MG (Percocet 10MG/325MG), 1 TAB PO QID Pantoprazole (Protonix), 40 MG PO DAILY Tiotropium [place] (Spiriva Handihaler), 1 CAP INH DAILY Scheduled PRN Albuterol Sulf (Proventil 0.083% 2.5MG/3ML), 2.5 MG INH QID PRN for SOB/Wheezing Miscellaneous Medications Cholecalciferol (Vitamin D) Physical Examination Skin: warm/dry Head: normocephalic Neck: supple Respiratory/Chest: + pertinent finding (few scattered wheezes) Cardiovascular: regular rate, rhythm, + systolic murmur (2/6 at RUSB) Abdomen / GI: normal bowel sounds Extremities: + pertinent finding (2+ right radial pulse) Neurologic/Psych: alert, + pertinent finding (anxious) Diagnosis Typical chest pain ASA Classification: ASA Class II Plan of Treatment Proceed with left heart catheterization.
--- NOTE | 2017-12-31 08:03 | Pre Sedation Assessment ---
Pre Sedation Assessment General Date of Sedation: Dec 31, 2017. Vital Signs Past 12 Hours Date Time Temp Pulse Resp B/P (MAP) Pulse Ox O2 Delivery O2 Flow Rate FiO2 12/31/17 07:07 36.8 88 16 114/66 (82) 98 Room Air Review Cardiovascular: regular rate, rhythm, no edema Lungs: chest non-tender, lungs clear Pre-Sedation Airway Assessment Smoking Status: Current Every Day Smoker Hx of Sleep Apnea: No Hx of difficult intubation: No Short Thick Neck: No Thyro-mental Distance: > 3 Finger Breadths Oral Cavity: WNL Mallampati Classification: Class II ASA Classification: Class II NPO Status Date of Last Intake of Fluids: Dec 30, 2017 Date of Last Intake of Solids: Dec 30, 2017 Procedure Planning Contraindications for Sedation: None Current Medications Reviewed: Yes Notes The planned sedation has been discussed with the patient. Informed Consent was obtained. I have identified the patient, determined the appropriateness of sedation and have assessed the patient immediately prior to the procedure. All medicine(s) and interventions are by my order.
--- NOTE | 2017-12-31 08:40 | Post Sedation Assessment ---
Post Sedation Assessment General Date of Sedation Dec 31, 2017. Vital Signs: Vital Signs Past 12 Hours Date Time Temp Pulse Resp B/P (MAP) Pulse Ox O2 Delivery O2 Flow Rate FiO2 12/31/17 07:07 36.8 88 16 114/66 (82) 98 Room Air Post Procedure Recovery Score Activity: (2) Moves 4 extremities * Respiration: (2) Deep breath/cough Circulation: (2) +/-20% PreAnes Value Consciousness: (2) Fully Awake Oxygen Saturation: (2) > 92% On Room Air Post Anesthesia Score: 10 Discharge Sedation Level of Care: Fast Track Phase II Post Sedation Plan On clinical assessment, the patient appears to have tolerated the sedation without complications. Patient is recovering as anticipated. Patient will continue to be monitored by nursing and may be discharged when sedation discharge criteria are met per below protocol. Upon Completions of procedure and additional 15 minutes continue every 5 minute vital signs and the P.A.R. score; then discharge to a Phase I or Fast Track to Phase II per the following guidelines: * Discharge Patient to appropriate Phase II area if PAR is 8 or greater or return to pre- procedure baseline. The post - procedure orders will be as directed. * If PAR score is less than 8 or not return to pre-procedure baseline then patient will follow Phase I monitoring till PAR is reached for Phase II. The Phase I may be done in procedure room or may call to secure a Phase I area. * If naloxone or flumazenil are used for reversal, hold in Phase I for an additional 60 -120 minutes before discharge to Phase II. Please call the Sedation Physician to re-evaluate and complete post-note for discharge to Phase II area. Do NOT discharge from procedure sedation or Phase 1 until post- sedation evaluation note is complete by procedure /sedation MD Sedation Discharge Instructions to be given to the patient at discharge to home.
--- NOTE | 2017-12-31 08:46 | Cardiac Catheterization ---
Procedure Note Procedure Date Dec 31, 2017. Pre-Procedure Diagnosis Angina AUC Score 7 Post-Procedure Diagnosis Normal Coronary Arteries, Normal Intracardiac Pressures Procedure(s) Performed Coronary Angiography, Left Heart Cath [employer] Supervisor(s) William Estimated Blood Loss 10 Medication(s) Fentanyl, Heparin, Nicardipine, Nitroglycerin, Versed, Lidocaine 1% Summary of Findings Indication: Accelerating typical angina Access: 6Fr slender right radial artery Catheters: [place] Findings: LM - Angiographically normal LAD - Angiographically normal; large vessel that wraps around apex Circumflex - Angiographically normal RCA - Angiographically normal; dominant, large caliber vessel LVEDP - 4 Arterial Closure: TR Band Summary: 1. Angiographically normal coronary arteries 2. Normal intracardiac filling pressure Recommendations: Follow-up with PCP for further evaluation of non-cardiac causes of chest pain Continued ASCVD risk factor modification smoking cessation Conservative measures including compression stockings for suspected chronic venous insufficiency. Hemodynamics Rest Ao: 112/67/88 Final Ao: 104/50 LV: 102/4 Recommendations Medical therapy and/or Counseling Specimens None Radiation Exposure (mGy) 519 Contrast (mls) 40 Fluids (cc crystalloids) 57 Drains None Anesthesia Moderate Procedural Complication(s) None Disposition [employer] Holding/Recovery ACC Data Cardiac Status Clinical evaluation leading to the procedure CAD Presntation: Stable angina Anginal Classification: CCS III Heart Failure: No, NYHA Class: CCS I Cardiogenic Shock w/in 24Hrs: No Cardiac Arrest w/in 24Hrs: No Imaging studies past 6 months: Yes Stress studies past 6 months: No Closure Device Percutaneous Entry Location: Radial Closure Device: Radial Band Recommendations: Medical therapy and/or Counseling Intraprocedure Events Significant Dissection: No Perforation: No
--- NOTE | 2017-12-31 08:48 | Discharge Instructions ---
Discharge Instructions Procedure Procedure Date: Dec 31, 2017. Reason for Visit: Cad *Dr Sheppard Doing*. Discharge Discharge Date: Dec 31, 2017. Discharge Diagnosis: Normal coronary arteries Last Recorded Wt (Kilograms): 70 Anesthesia Post Anesthesia Instructions: If you have had General Anesthesia or IV Sedation: * Do not drive today. * Resume driving when surgeon permits. * Do not make important decisions or sign legal documents today. * Call surgeon for: 1. Temperature elevations greater than 101 degrees F. 2. Uncontrollable pain. 3. Excessive bleeding. 4. Persistent nausea and vomiting. 5. Medication intolerance (nausea, vomiting or rash). * For nausea and vomiting use only clear liquids such as: tea, soda, bouillon until nausea subsides, then gradually increase diet as tolerated. * If you have any concerns or questions, call your surgeon's office. If physician is unavailable and it is an emergency, call 911 or go to the nearest emergency room. Instructions Activity Recommendations: limitations as noted below Recommended Home Diet: resume previous diet, low cholesterol Allergies: Coded Allergies: BEE STING (Verified Allergy, Severe, SHORTNESS OF BREATH, 06/28/16) Penicillins (Verified Allergy, Intermediate, SWELLING, 06/28/16) Acetaminophen (Unverified Allergy, Unknown, unknown, 06/28/16) Doxepin (Unverified Allergy, Unknown, unknown, 06/28/16) Hydrocodone (Unverified Allergy, Unknown, unknown, 06/28/16) Meloxicam (Unverified Allergy, Unknown, unknown, 06/28/16) Morphine (Verified Allergy, Unknown, ???, 06/28/16) Follow Up Additional Instructions: ACTIVITY RECOMMENDATIONS: Excess manipulation of the wrist should be avoided for the next 24-48 hours. * No lifting over 2 pounds (approximately a 1/2 gallon of milk) with the utilized arm for 24 hours. * No strenuous activity such as bowling or tennis for 3 days. * Keep the site of the procedure covered with a bandage for 24 hours. *You may shower the day after the procedure. Do not take a tub bath or submerge the puncture site in water for the next 3 days. *Do not operate any motorized equipment for 3 days. SPECIAL CARE INSTRUCTIONS: The site may be slightly bruised and sore following your procedure. Should any of the following occur, contact the Dr. who performed your procedure. 1. Redness/inflammation, swelling, chills, or fever, or colored drainage at procedure site within 3-7 days after your procedure. 2. Coldness, discoloration, ongoing numbness, severe pain, or swelling. Expect mild tingling of hand and tenderness at the puncture site for up to three days. If this persists beyond three days, or other symptoms develop, notify the Dr. who performed your procedure. BLEEDING: If the procedure site on your wrist begins to bleed, do not panic 1. Place 1 or 2 fingers firmly just slightly above the insertion site to stop the bleeding. You may be able to feel your pulse as you hold pressure. 2. Lift your finger after 5 minutes to see if the bleeding has stopped. 3. Once the bleeding has stopped, gently wipe the wrist area clean with a bandage. * If the bleeding from your wrist does not stop after 10 minutes, or if there is a large amount of bleeding or spurting, call 911 (do not drive yourself to the hospital). SKIN IRRITATION: * You may experience some redness and/or swelling in the area where radiation was administered. If any skin irritation occurs, please contact your family physician. FOLLOW UP VISIT: Keep any scheduled doctor appointments. Follow-up with: With primary care in next 3-4 weeks Sanam Lawson Recommendations: Call your doctor if: * Temperature above 101 degrees * Pain not relieved by pain medicine ordered * There is increased drainage or redness from any incision * You have any unanswered questions or concerns. Your Doctors Instructions noted above were prepared by provider Pool Sheppard. Patient Signature Section: Patient Instructions Signature Page Shameka Ramirez Patient (or Guardian) Signature/Date: I have read and understand the instructions given to me by my caregivers. Caregiver/RN/Doctor Signature/Date: The above-named patient and/or guardian has received patient instructions on this date. + Original Patient Signature Page (only) stays with chart. Please make copy for patient.
[2017-12-31 11:00] VITALS: BP 106/58; PULSE 80; O2SAT 95
== END | disposition home or self-care (01) ==
LOC: C.CATH 06:57
PROVIDERS: ATTEND Internal Medicine Cardiovascular Disease
DX: I20.9 Angina pectoris, unspecified (principal); R06.02 Shortness of breath; K21.9 Gastro-esophageal reflux disease without esophagitis; J44.9 Chronic obstructive pulmonary disease, unspecified; I10 Essential (primary) hypertension; F17.200 Nicotine dependence, unspecified, uncomplicated; Z86.19 Personal history of other infectious and parasitic diseases; Z88.0 Allergy status to penicillin; Z88.6 Allergy status to analgesic agent; Z88.5 Allergy status to narcotic agent; Z88.8 Allergy status to other drugs, medicaments and biological substances; Z91.030 Bee allergy status; Z79.899 Other long term (current) drug therapy; Z83.3 Family history of diabetes mellitus

== ENCOUNTER → 2018-01-20 | Day surgery (SDC) | payer OTHER ==
[2018-01-13 13:51] VITALS: Ht 165.1 cm; Wt 72.7 kg
[~2018-01-20] VITALS: Ht 165.1 cm; Wt 72.7 kg
[~2018-01-20] MED LIST changes: -FENTANYL CITRATE INJ 50 MCG/1 ML 2 ML VIAL ONE; -HEPARIN SOD (PORCINE) 1000 UNIT/ML 10 ML VIAL ONE; -LIDOCAINE HCL 1% 20 ML VIAL ONE; +LIDOCAINE HCL 2% 2 ML VIAL (20MG/ML) ONE; -MIDAZOLAM HCL 1 MG/ML 2ML VIAL ONE; -NITROGLYCERIN/D5W 100MCG/ML 20ML SYR ONE; -NiCARDipine HCL INJ 2.5 MG/ML 10 ML AMP ONE; -OXYC-106 PO; +OXYC10TA80 PO; +PROPOFOL IV EMULSION 10 MG/ML 20 ML VIAL ONE; +SODIUM CHLORIDE 0.9% 500ML 500 ML IV ONE; -[UNRECOGNIZED DRUG - CODE]
--- NOTE | 2018-01-20 12:32 | Endo History and Physical ---
History & Physical Date of Service: Jan 20, 2018. Chief Complaint: screening Referring Physician: Dr. Vianca Andrade History of Present Illness screening colon Past Medical History Arthritis, Asthma, Hypertension Past Surgical History Hx Cardiac Surgery: Yes (HEART CATH 12/2017) Hx Internal Defibrillator: No Hx Pacemaker: No Hx Abdominal Surgery: Yes (OVARIAN CYTS X2 ) Hx of Implantable Prosthesis: No Hx Post-Op Nausea and Vomiting: No Hx Cancer Surgery: No Hx Thoracic Surgery: No Hx Orthopedic: No (BILT HAND TENDONITIS, R CARPAL TUNNEL) Hx Urinary Tract Surgery: No Family History None Social History Smoking Status: Current Every Day Smoker Hx Substance Use: No Hx Alcohol Use: No Allergies Coded Allergies: BEE STING (Verified Allergy, Severe, SHORTNESS OF BREATH, 01/13/18) Penicillins (Verified Allergy, Intermediate, SWELLING, 01/13/18) Acetaminophen (Verified Allergy, Unknown, unknown, 01/20/18) Doxepin (Verified Allergy, Unknown, unknown, 01/20/18) Hydrocodone (Verified Allergy, Unknown, unknown, 01/20/18) Meloxicam (Verified Allergy, Unknown, unknown, 01/20/18) Morphine (Verified Allergy, Unknown, UNSURE, 01/13/18) Current Medications Reported Home Medications Medications Dose Route/Sig Max Daily Dose Days Date Category Spiriva Handihaler (Tiotropium [place]) 30 Puff/540 Mcg Aerp 1 Cap INH DAILY 30 12/31/17 Reported Protonix (Pantoprazole Sodium) 40 Mg Tab 40 Mg PO DAILY 12/31/17 Reported Vitamin D (Cholecalciferol) 1,000 Unit Tab 12/31/17 Reported Montelukast Sodium (Montelukast Sod) 10 Mg Tab 10 Mg PO DAILY 08/20/17 Reported Advair Diskus 500/50 60 Dose (Fluticasone Prop/Salmeterol) 1 Ea Aerp 1 Puff INH BID 08/20/17 Reported Proventil 0.083% 2.5MG/3ML (Albuterol Sulf) 2.5 Mg/3 Ml Nebu 2.5 Mg INH QID PRN 08/20/17 Reported Percocet 10MG/325MG (Oxycodone/Acetaminophen) Tab 1 Tab PO QID 06/28/16 Reported Vital Signs Weight (Kilograms): 72.73 Height (Feet): 5 Height (Inches): 5 Date Time Temp Pulse Resp B/P (MAP) Pulse Ox O2 Delivery O2 Flow Rate FiO2 01/20/18 12:09 36.6 73 20 129/72 (91) 98 Room Air Physical Exam General Appearance: WD/WN, no apparent distress Respiratory/Chest: Auscultation: breath sounds normal Cardiovascular: Heart Auscultation: RRR Abdomen: Bowel Sounds: normal Inspection & Palpation: soft, non-distended, no tenderness, guarding & rebound Assessment and Plan colonoscopy for screen
--- NOTE | 2018-01-20 13:14 | Discharge Instructions ---
Endoscopy Patient Instructions Date / Procedure(s) Performed Jan 20, 2018. Colonoscopy Allergy Information Coded Allergies: BEE STING (Verified Allergy, Severe, SHORTNESS OF BREATH, 01/13/18) Penicillins (Verified Allergy, Intermediate, SWELLING, 01/13/18) Acetaminophen (Verified Allergy, Unknown, unknown, 01/20/18) Doxepin (Verified Allergy, Unknown, unknown, 01/20/18) Hydrocodone (Verified Allergy, Unknown, unknown, 01/20/18) Meloxicam (Verified Allergy, Unknown, unknown, 01/20/18) Morphine (Verified Allergy, Unknown, UNSURE, 01/13/18) Discharge Date / Findings Jan 20, 2018. diverticulosis; poor prep Medication Instructions Restart Stopped Medication(s): Reported Home Medications Medications Dose Route/Sig Max Daily Dose Days Date Category Spiriva Handihaler (Tiotropium [place]) 30 Puff/540 Mcg Aerp 1 Cap INH DAILY 30 12/31/17 Reported Protonix (Pantoprazole Sodium) 40 Mg Tab 40 Mg PO DAILY 12/31/17 Reported Vitamin D (Cholecalciferol) 1,000 Unit Tab 12/31/17 Reported Montelukast Sodium (Montelukast Sod) 10 Mg Tab 10 Mg PO DAILY 08/20/17 Reported Advair Diskus 500/50 60 Dose (Fluticasone Prop/Salmeterol) 1 Ea Aerp 1 Puff INH BID 08/20/17 Reported Proventil 0.083% 2.5MG/3ML (Albuterol Sulf) 2.5 Mg/3 Ml Nebu 2.5 Mg INH QID PRN 08/20/17 Reported Percocet 10MG/325MG (Oxycodone/Acetaminophen) Tab 1 Tab PO QID 06/28/16 Reported Reported Home Medications Medications Dose Route/Sig Max Daily Dose Days Date Category Spiriva Handihaler (Tiotropium [place]) 30 Puff/540 Mcg Aerp 1 Cap INH DAILY 30 12/31/17 Reported Protonix (Pantoprazole Sodium) 40 Mg Tab 40 Mg PO DAILY 12/31/17 Reported Vitamin D (Cholecalciferol) 1,000 Unit Tab 12/31/17 Reported Montelukast Sodium (Montelukast Sod) 10 Mg Tab 10 Mg PO DAILY 08/20/17 Reported Advair Diskus 500/50 60 Dose (Fluticasone Prop/Salmeterol) 1 Ea Aerp 1 Puff INH BID 08/20/17 Reported Proventil 0.083% 2.5MG/3ML (Albuterol Sulf) 2.5 Mg/3 Ml Nebu 2.5 Mg INH QID PRN 08/20/17 Reported Percocet 10MG/325MG (Oxycodone/Acetaminophen) Tab 1 Tab PO QID 06/28/16 Reported Provider Instructions Activity Restrictions - No exercising or heavy lifting for 24 hours. - Do not drink alcohol the day of the procedure. - Do not drive a car or operate machinery until the day after the procedure. - Do not make any important decisions or sign important papers in 24 hours after the procedure. Following Day: - Return to full activity which may include returning to work/school. Diet Start your diet with liquids and light foods (jello, soup, juice, toast). Then eat your usual diet if not nauseated. Treatment For Common After Affects For mild abdominal pain, bloating, or excessive gas: - Rest - Eat lightly - Lie on right side Follow-Up Information Follow-up with Dr. Vianca Andrade as scheduled Anesthesia Information What You Should Know You have had a procedure that required some medicine to reduce anxiety and discomfort. This treatment is called moderate sedation. After receiving the treatment, you may be sleepy, but you will be able to breathe on your own. The effects of the treatment may last for several hours. Follow these instructions along with Activity/Diet recommendations noted above: * Do NOT do anything where dizziness or clumsiness would be dangerous. * Rest quietly at home today, then you can be up and about tomorrow. * Have a responsible person stay with you the rest of today. * You may have had an I.V. today. If so, you may take the dressing off later today. Recommendations Call your doctor if: * Trouble breathing * Continuous vomiting for more than 24 hours * Temperature above 101 degrees * Severe abdominal pain or bloating * Pain not relieved by pain medicine ordered * There is increased drainage or redness from any incision * A large amount of rectal bleeding greater than 2-3 tablespoons. (If you had a polyp/s removed or have hemorrhoids, a small amount of blood - from the rectum is to be expected.) * You have any unanswered questions or concerns. IN THE EVENT OF A SERIOUS EMERGENCY, GO TO THE NEAREST EMERGENCY ROOM Your discharge instructions were prepared by provider Abel Dickson. Patient Instructions Signature Page Shameka Ramirez Patient (or Guardian) Signature/Date: I have read and understand the instructions given to me by my caregivers. Caregiver/RN/Doctor Signature/Date: The above-named patient and/or guardian has received patient instructions on this date. + Original Patient Signature Page (only) stays with chart. Please make copy for patient.
--- NOTE | 2018-01-20 13:23 | GI REPORT ---
Patient Name: Shameka Ramirez Procedure Date: 01/20/2018 12:42 PM Date of : 1960 Admit Type: Outpatient Age: 57 Gender: Female Attending MD: Abel Dickson MD Procedure: Colonoscopy Providers: Able Dickson MD Referring MD: Vianca Andrade Indications: Screening for colorectal malignant neoplasm, pt unaware of family history Medicines: Propofol per Anesthesia Complications: No immediate complications. Estimated blood loss: None. Estimated Blood Loss: Estimated blood loss: none. Estimated blood loss: none. Procedure: Pre-Anesthesia Assessment: - Prior to the procedure, a History and Physical was performed, and patient medications and allergies were reviewed. The patient's tolerance of previous anesthesia was also reviewed. The risks and benefits of the procedure and the sedation options and risks were discussed with the patient. All questions were answered, and informed consent was obtained. Prior Anticoagulants: The patient has taken no previous anticoagulant or antiplatelet agents. ASA Grade Assessment: III - A patient with severe systemic disease. After reviewing the risks and benefits, the patient was deemed in satisfactory condition to undergo the procedure. After I obtained informed consent, the scope was passed under direct vision. Throughout the procedure, the patient's blood pressure, pulse, and oxygen saturations were monitored continuously. The scope was introduced through the anus and advanced to the cecum, identified by appendiceal orifice and ileocecal valve. The colonoscopy was extremely difficult due to multiple diverticula in the colon, poor bowel prep with stool present, significant looping and a tortuous colon. Successful completion of the procedure was aided by using manual pressure and managing the patient's medical instability. The patient tolerated the procedure well. The quality of the bowel preparation was 70 percent obscured. Findings: The perianal and digital rectal examinations were normal. Pertinent negatives include normal sphincter tone, no palpable rectal lesions and no anal lesion or abnormality was detected. Many small-mouthed diverticula were found in the sigmoid colon. A large amount of semi-solid stool was found in the entire colon, precluding visualization. Lavage of the area was performed using a large amount of sterile water, resulting in incomplete clearance with continued poor visualization. The retroflexed view of the distal rectum and anal verge was normal and showed no anal or rectal abnormalities. Impression: - Diverticulosis in the sigmoid colon. - Stool in the entire examined colon. - The distal rectum and anal verge are normal on retroflexion view. - No specimens collected. Recommendation: - Discharge patient to home (ambulatory). - Advance diet as tolerated. - This is a limited exam due to copious retained stool and is not adequate for screening purposes. Options include repeat colonoscopy with 2-3 day prep with strict adherence to food restrictions. Alternatives include Cologuard, Annual FIT testing starting now. MD Abel Marquez MD 01/20/2018 1:22:15 PM This report has been signed electronically. Note Initiated On: 01/20/2018 12:42 PM Number of Addenda: 0 I attest to the content of the Intraoperative Record and orders documented therein, exceptions below {[id number]}
[2018-01-20 13:46] VITALS: BP 137/82; PULSE 77; O2SAT 99
--- NOTE | 2018-01-20 14:40 | Anesthesiology Progress Note ---
Anesthesia Post Op Note Date & Time Jan 20, 2018 at 14:40 Vital Signs Pain Intensity: 0 Vital Signs Past 12 Hours Date Time Temp Pulse Resp B/P (MAP) Pulse Ox O2 Delivery O2 Flow Rate FiO2 01/20/18 13:46 77 20 137/82 (100) 99 Room Air 01/20/18 13:29 80 18 129/79 (96) 99 Room Air 01/20/18 13:15 84 16 123/78 (93) 97 Room Air 01/20/18 12:09 36.6 73 20 129/72 (91) 98 Room Air Notes Mental Status: alert / awake / arousable, participated in evaluation Pt Amnestic to Procedure: Yes Nausea / Vomiting: adequately controlled Pain: adequately controlled Airway Patency, RR, SpO2: stable & adequate BP & HR: stable & adequate Hydration State: stable & adequate Anesthetic Complications: no major complications apparent
== END | disposition home or self-care (01) ==
LOC: C.GI 11:48
PROVIDERS: ATTEND Internal Medicine Gastroenterology
DX: Z12.11 Encounter for screening for malignant neoplasm of colon (principal); K57.30 Diverticulosis of large intestine without perforation or abscess without bleeding; J45.909 Unspecified asthma, uncomplicated; J44.9 Chronic obstructive pulmonary disease, unspecified; I10 Essential (primary) hypertension; I25.2 Old myocardial infarction; Z79.899 Other long term (current) drug therapy; Z91.030 Bee allergy status; Z88.0 Allergy status to penicillin; Z88.1 Allergy status to other antibiotic agents; Z88.5 Allergy status to narcotic agent